=== PATIENT | female | born 1965 | race Caucasian/White ===

== ENCOUNTER 2021-03-25 11:10 | Day surgery (SDC) | payer MEDICARE, MEDICAID ==
[~2021-03-25] VITALS: Ht 157.5 cm; Wt 58.6 kg
[2021-03-25] MEDS ORDERED: PROPOFOL 1% 20 ML VIAL IVP ONE (11:11)
[2021-03-25] MEDS ORDERED: SODIUM CHLORIDE 0.9% 1,000 ML IV ONE (11:30)
[2021-03-25 11:35] LABS: COVID AG,FIA SOURCE NASOPHARYNGEAL
== END 2021-03-25 13:50 | disposition home or self-care (01) ==
LOC: SURGERY 11:10
PROVIDERS: ATTEND Student in an Organized Health Care Education/Training Program
DX: Z12.11 Encounter for screening for malignant neoplasm of colon (principal); K63.5 Polyp of colon; D12.5 Benign neoplasm of sigmoid colon; K57.30 Diverticulosis of large intestine without perforation or abscess without bleeding; F41.9 Anxiety disorder, unspecified; K64.8 Other hemorrhoids; G89.29 Other chronic pain; F32.9 Major depressive disorder, single episode, unspecified; F43.10 Post-traumatic stress disorder, unspecified; F12.90 Cannabis use, unspecified, uncomplicated; Z90.710 Acquired absence of both cervix and uterus; Z98.890 Other specified postprocedural states; G40.909 Epilepsy, unspecified, not intractable, without status epilepticus; Z87.820 Personal history of traumatic brain injury
CPT/HCPCS: 45380; 87426; 88305; C1769; C9803; J2704; J7030